=== PATIENT | female | born 1985 | race Caucasian/White ===

== ENCOUNTER 2017-06-14 13:45 | Emergency (ER) | payer MEDICAID ==
[~2017-06-14] VITALS: Ht 172.7 cm; Wt 145.0 kg
[~2017-06-14 13:45] MED LIST: AMBI5TAB PO; DICL1GEL TOP; FLUO20TA20 PO; NORT25CA PO
[2017-06-14 13:46] VITALS: BP 129/85; PULSE 103; RESP 20; TEMP 97.9; O2SAT 98
--- NOTE | 2017-06-14 13:50 | PD ---
Physical Exam Date Seen by Provider: Jun 14, 2017 Time Seen by Provider: 13:48 Narrative 32 YOWF C/O BITE YEST RLE. SQUEEZING IT. NOW GETTING RED AND SWOLLEN. 5/10 PAIN VS REVIEWED AWAITING BED PLACEMENT Data Data Last Documented VS Vital Signs Date Time Temp Pulse Resp B/P Pulse Ox O2 Delivery O2 Flow Rate FiO2 06/14/17 13:46 97.9 103 20 129/85 98 Room Air MDM Supervised Visit with AASHISH: No Condition: Stable Paul Lux Jun 14, 2017 13:49
--- NOTE | 2017-06-14 14:12 | PD ---
HPI Chief Complaint: Skin Problem Time Seen by Provider: 14:12 Travel History International Travel<30 days: No Contact w/Intl Traveler<30days: No Traveled to known affect area: No History of Present Illness HPI 32-year-old female presents the emergency Department with a tender, erythematous, arm area to the right lateral upper macdonald, which has been present for 2 days and getting worse. She denies fever, chills, drainage, or bleeding. She states it has not been itchy. She denies any other symptoms currently. Her pain is worse at a 6 out of 10 currently. She is not taking any medications for today. She is allergic to penicillin. She has no history of MRSA. PFSH Past Medical History ?: Not Social History Alcohol Use: Yes Tobacco Use: No Substance Use: No Allergies-Medications (Allergen,Severity, Reaction): Coded Allergies: penicillin G (Verified Allergy, Unknown, HIVES , 06/14/17) Reported Meds & Prescriptions Reported Meds & Active Scripts Active Fluoxetine (Fluoxetine HCl) 20MG Cap 1 Cap PO DAILY Ambien (Zolpidem Tartrate) 5 Mg Tab 5 Mg PO HS PRN Nortriptyline Hcl (Nortriptyline HCl) 25 Mg Cap 1 Cap PO HS Voltaren 1% Gel (Diclofenac Sodium (Topical)) 1 % Gel 1 Gm TOP QID PRN Review of Systems Except as stated in HPI: all other systems reviewed are Neg General / Constitutional: No: Fever Eyes: No: Visual changes HENT: No: Headaches Cardiovascular: No: Chest Pain or Discomfort Respiratory: No: Shortness of Breath Gastrointestinal: No: Abdominal Pain Genitourinary: No: Dysuria Musculoskeletal: No: Pain Skin: Positive Lesions (see history of present illness), No Rash Neurologic: No: Weakness Psychiatric: No: Depression Endocrine: No: Polydipsia Hematologic/Lymphatic: No: Easy Bruising Physical Exam Narrative GENERAL: Moderately obese female in no acute distress. SKIN: Warm and dry. Normal color. Normal turgor. Patient is obvious insect bite to the right lateral proximal macdonald with erythematous surrounding with induration and tenderness and warmth measuring 6 cm in diameter. There is no palpable abscess or pointing. HEAD: Atraumatic. Normocephalic. EYES: Pupils equal and round. No scleral icterus. No injection or drainage. ENT: No nasal bleeding or discharge. Mucous membranes pink and moist. Pharynx is clear. Airway is patent. NECK: Trachea midline. Supple. CARDIOVASCULAR: Regular rate and rhythm. RESPIRATORY: No accessory muscle use. Clear to auscultation. Breath sounds equal bilaterally. MUSCULOSKELETAL: Extremities without clubbing, cyanosis, or edema. No obvious deformities. NEUROLOGICAL: Awake and alert. No obvious cranial nerve deficits. Motor grossly within normal limits. Five out of 5 muscle strength in the arms and legs. Normal speech. PSYCHIATRIC: Appropriate mood and affect; insight and judgment normal. Data Data Last Documented VS Vital Signs Date Time Temp Pulse Resp B/P Pulse Ox O2 Delivery O2 Flow Rate FiO2 06/14/17 13:46 97.9 103 20 129/85 98 Room Air MDM Medical Decision Making Medical Screen Exam Complete: Yes Emergency Medical Condition: Yes Differential Diagnosis Insect bite with local reaction. Cellulitis. MRSA. Narrative Course Patient is given Bactrim DS by mouth now. Patient is given ibuprofen 600 mg by mouth now. Patient continued on Bactrim DS twice a day 7 days. Patient given a prescription for ibuprofen 600 mg 4 times a day #40. Patient can take Benadryl as well as discussed. Patient use warm compresses to the area frequently. Patient follow up if symptoms are not improving in the next 24-48 hours as discussed. Diagnosis Primary Impression: Insect bite of right lower leg with infection Qualified Code: S80.861A - Insect bite of right lower leg with infection, initial encounter Referrals: Primary Care Physician Patient Instructions: Cellulitis (DC), General Instructions, Insect Bite or Sting (ED) Additional Instructions: Patient is given Bactrim DS by mouth now. Patient is given ibuprofen 600 mg by mouth now. Patient continued on Bactrim DS twice a day 7 days. Patient given a prescription for ibuprofen 600 mg 4 times a day #40. Patient can take Benadryl as well as discussed. Patient use warm compresses to the area frequently. Patient follow up if symptoms are not improving in the next 24-48 hours as discussed. Med/Other Pt SpecificInfo: Prescription(s) given Disposition: 01 DISCHARGE HOME Condition: Stable [place] Jun 14, 2017 14:12
[2017-06-14] MEDS ORDERED: SULFAMETHOXAZOLE-TRIMETHOPRIM DS 800-160 MG TAB PO ONE (14:30)
[2017-06-14] MEDS ORDERED: IBUPROFEN 600 MG TAB PO ONE (14:30)
[2017-06-14] MEDS ORDERED: BACT800T5 PO (14:32)
[2017-06-14] MEDS ORDERED: IBUP-232 PO (14:32)
[2017-06-14 16:27] VITALS: RESP 16
[2017-06-18] MEDS ORDERED: CLIN1CAP5 PO (20:11)
[2017-08-22] MEDS ORDERED: ZOFR4TAB3 SL (10:14)
== END 2017-06-14 15:05 | disposition home or self-care (01) ==
LOC: NEPK 13:45
DX: S80.861A Insect bite (nonvenomous), right lower leg, initial encounter (principal); W57.XXXA Bitten or stung by nonvenomous insect and other nonvenomous arthropods, initial encounter
CPT/HCPCS: 99283